=== PATIENT | male | born 1955 | race Caucasian/White ===

== ENCOUNTER → 2018-08-11 | Outpatient (CLI) | payer SELFPAY ==
--- NOTE | 2018-08-12 03:18 | REP ---
Clinical: Left foot pain. Technique: AP, lateral, bilateral oblique views of the left foot. Findings: Age-related degenerative changes are appreciated. Lateral view demonstrates small calcaneal heal spur along with bulky calcifications at the insertion of the Achilles tendon on the calcaneus. AP and oblique views demonstrate a small bony fragment just medial to the navicular bone at the region of the talonavicular joint which may represent an acute fracture fragment and should be correlated with physical examination. Impression: 1. Age-related degenerative changes. 2. Suspected small fracture fragment along the medial aspect of the navicular bone and talonavicular joint. Electronically Signed by Henri De La Vega MD 08/12/2018 03:10 A
--- NOTE | 2018-08-12 03:20 | REP ---
Clinical: Pain. Recent fall. Technique: AP, lateral, bilateral oblique views of the right ankle. Findings: Soft tissue swelling is appreciated along with age-related degenerative changes. Small fragments are identified adjacent to the medial malleolus which appear relatively well corticated and likely represent old injuries. No obvious acute fracture or dislocation appreciated by ankle radiograph series. Lateral view demonstrates small calcaneal heal spur and calcifications at the insertion of the Achilles tendon. Impression: Soft-tissue swelling consistent with recent fall. Degenerative changes. Possible old medial malleolar injury. Electronically Signed by Henri De La Vega MD 08/12/2018 03:12 A
== END ==
LOC: M WUC 19:15
PROVIDERS: ATTEND Physician Assistant
DX: M77.31 Calcaneal spur, right foot (principal)